=== PATIENT | female | born 1965 | race Two or more races ===

== ENCOUNTER → 2023-04-09 | Outpatient (CLI) | payer MEDICARE, OTHER ==
[2023-04-09 13:47] VITALS: BP 135/85; PULSE 89; RESP 15; TEMP 98.7
--- NOTE | 2023-04-09 14:40 | P.PAINPG ---
PQRS Measure Charge Sheet Comment: HISTORY OF PRESENT ILLNESS: A 57 yr old female as a referral from Orin ARRIETA presents today w severe and chronic LBP secondary to DDD, spondylosis and facet arthropathy without myelopathy for evaluation. Pt states pain level is provoked at 1 /10 in intensity while on Sterling 10/325mg, constant, localized in the lumbar spine, predominantly axial, throbbing in character w occasional shooting pain towards the feet. Pain is provoked by walking for periods > 20 min. Pain is alleviated by medications (Sterling 10/325mg #120 though last fill was #90 by her new PCP), repositioning and rest. She stated she "doesn't want anyone touching [her] spine." Oswestry axial pain score at 37. I discussed the new [facility] rules of reducing MME and integrating non-narcotic pain management and that I want her to try PT and obtain imaging. Pt stated all she wants is her extra #30 to "get through the month." I discussed that I will give her a non narcotic medication that will potentiate the effects of the Sterling she has in her possession so it lasts longer. Pt stated she doesn't believe the new guidelines, that she will find a set up operator and go to another doctor she's heard of from people she knows. Pt immediately walked out of exam room. PMH: OA, HTN, Seasonal allergies, MDD/ Bipolar Disorder, Hyperlipidemia, Asthma/ COPD, GERD PSH: Colonoscopy (w Polypectomy 2017, 2022), Cholecystectomy (2006), Appendectomy (1978) SH: 40 pack/ yr tobacco user, Occasional ETOH use, No illicit drug use FH: [place] All: See list Meds: See list REVIEW OF ORGAN SYSTEMS: CONSTITUTIONAL: No fevers or chills. No recent weight loss. NEUROLOGICAL: + numbness and tingling along the distal extremities. No seizure disorders or headaches. MUSCULOSKELETAL: + pain PSYCHIATRIC: Denies current depression or suicidal thoughts. Physical Examinations : Constitutional : Cooperative , not in acute distress . Neurologic : Cranial nerve II to XII intact. No focal neurological deficits. Psychiatric : alert & oriented x 3. Matching mood & appropriate affect. Judgment & insight intact. Musculoskeletal : Cervical Spine Motor strength in the deltoid and biceps: Normal right side. Normal Left side Motor strength biceps and the wrist extensors: Normal right side . Normal left side Motor strength in the triceps muscle: Normal right side. Normal left side Deep tendon reflexes: Normal at the biceps. Normal at Brachioradialis. Normal at triceps Vertebral body tenderness to deep palpation over Cervical facet loading test: positive bilaterally Spurling test: positive bilaterally Neck distraction test: positive bilaterally Christopher sign: positive bilaterally Lumbar spine Motor strength lower extremities ,thigh and legs 5/5 Right side , 5/5 Left side Deep tendon reflexes : Normal Knee Jerk. Normal Ankle Jerk Vertebral body tenderness over Browne Test positive Lumbar facet Loading Test: positive Right / positive Left Range of motion of the lumbar spine Flexion 30 degrees, extension 10 degrees Straight Leg Raise test: Left/ Right positive at degrees Alvina test: positive right / positive left. Severe tenderness over the Sacroiliac joint on the Right / Left sides Gaenslen test: positive bilaterally Seated flexion test: positive bilaterally. Sacral spine : Severe tenderness over the Sacroiliac joint: right side / left side Range of motion: Flexion of the lumbar spine <60 degrees Range of motion: Extension of the lumbar spine <20 degrees Gaenslen's Test positive Alvina test: positive right side / left side Thigh Thrust Test Sacral Thrust Test Imaging: None on file Assessment/ Plan : Lumbar DDD Pt stated she has the names of 3 other doctors from people she knows that will fill her medications for her. All questions answered. I have spent greater than 30 minutes on patient care today. Dr Holden was available by phone for the evaluation of this patient. The time was used to review the medical records including relevant urine studies and Prescription history (MAPs), review of the available imaging, evaluation and examination of the patient, coordination of care with the medical staff and if applicable referring physicians, as well as creation of the medical record Controlled Substance Measures - Controlled Substance Measures Is patient prescribed a controlled substance at discharge?: No
== END ==
LOC: PNWHC3 12:46
PROVIDERS: ATTEND Specialist
DX: G89.4 Chronic pain syndrome (principal); M51.36 Other intervertebral disc degeneration, lumbar region; M19.90 Unspecified osteoarthritis, unspecified site; I10 Essential (primary) hypertension; F31.9 Bipolar disorder, unspecified; E78.5 Hyperlipidemia, unspecified; J44.89 Other specified chronic obstructive pulmonary disease; F17.210 Nicotine dependence, cigarettes, uncomplicated; K21.9 Gastro-esophageal reflux disease without esophagitis; Z79.85 Long-term (current) use of injectable non-insulin antidiabetic drugs
CPT/HCPCS: 99211